=== PATIENT | female | born 1995 | race Two or more races ===

== ENCOUNTER 2025-06-27 08:14 | Outpatient (CLI) | payer OTHER | END 2025-06-27 08:17 | disposition home or self-care (01) | LOC: PRENATAL 08:14 | PROVIDERS: ATTEND Obstetrics & Gynecology Maternal & Fetal Medicine | DX: O36.80X0 Pregnancy with inconclusive fetal viability, not applicable or unspecified (principal); Z36.82 Encounter for antenatal screening for nuchal translucency; Z14.8 Genetic carrier of other disease; O99.283 Endocrine, nutritional and metabolic diseases complicating pregnancy, third trimester; O36.1930 Maternal care for other isoimmunization, third trimester, not applicable or unspecified; Z3A.12 12 weeks gestation of pregnancy ==